=== PATIENT | female | born 1945 | race Caucasian/White ===

== ENCOUNTER → 2016-10-19 | Outpatient (CLI) | payer MEDICARE, BC ==
[~2016-10-19] MED LIST: ASPI81EC PO; ASPIRIN 32325 MG/TAB PO; CALCIUM 1200 601 SGL PO; CARDI-OMEGA1000 MG PO; CETIRIZINE10 MG PO; DARVOCET N 101 UDTAB PO; FOLIC ACID800 MCG PO; HCTZ 25MG25 MG PO; HYZAAR 25 MG-101 TAB PO; K LYTE 25 MEQ25 MEQ PO; K-POTASSIUM CH20 ME1 PO; LISINOPRIL2.5 MG PO; LISINOPRIL5 MG PO; LOPRESSOR50 MG PO; NITROSTAT0.4 MG/TAB SL; NORCO 325 MG-51 TAB PO; NORVASC5 MG PO; PLENDIL10 MG PO; PRILOSEC 20MG20 MG PO; TYLENOL 325MG325 MG PO; VITAMIN E 400 U4001 PO; VITAMIN E1000 U/CAP PO; VITRON-C; VYTORIN 10 MG-21 TAB PO; ZETIA 10MG TAB10 MG PO
== END ==
LOC: MC.RAD 10-06 10:40
DX: Z12.31 Encounter for screening mammogram for malignant neoplasm of breast (principal); R92.1 Mammographic calcification found on diagnostic imaging of breast